=== PATIENT | female | born 1985 | race Caucasian/White ===

== ENCOUNTER 2018-01-17 05:00 | Inpatient (IN) | payer BC ==
[~2018-01-17] VITALS: Ht 162.6 cm; Wt 59.0 kg
[~2018-01-17 05:00] MED LIST: BENADRYL25 MG PO; CHROMAGEN,1 CAPSULE PO; ENDOCET 5-3251 EACH PO; IBUPROFEN800 MG PO; PRENATAL TABLE1 EACH PO; ZANTAC75 M1 PO
[2018-01-17 05:26] VITALS: BP 117/83
[2018-01-17 05:45] LABS: HEMATOCRIT 36.3 % (36.0-46.0); HEMOGLOBIN 12.1 G/DL (11.9-15.5); MCH 32.7 PG (29.0-34.0); MCHC 33.3 G/DL (30.0-36.0); MCV 98.1 FL (83-99); PLATELET COUNT 229 K/uL (156-360); RBC DIS.WIDTH-CV 13.7 % (11.8-14.6); RBC DIS.WIDTH-SD 48.4 % (39-53); WHITE BLOOD COUNT 12.4 K/uL (4.1-10.2)
[2018-01-17 06:23] LABS: BENZODIAZEPINES, URINE SCREEN Negative (200 ng/mL)
[2018-01-17 10:43] VITALS: BP 114/69
[2018-01-17 11:44] VITALS: BP 132/85
[2018-01-17 13:44] VITALS: BP 109/70
[2018-01-17 15:45] VITALS: BP 118/80
[2018-01-17 17:46] VITALS: BP 106/68
[2018-01-18 06:34] LABS: BASOPHIL (%) 0.3 % (0-1); EOSINOPHIL (%) 0.5 % (0-5); EOSINOPHIL COUNT 0.1 K/uL (0-0.3); HEMATOCRIT 28.3 % (36.0-46.0); IMMATURE GRANULOCYTE (%) 1.2 % (0.0-0.7); LYMPHOCYTE (%) 15.3 % (15-42); MCH 32.5 PG (29.0-34.0); MCHC 32.5 G/DL (30.0-36.0); MONOCYTE (%) 5.8 % (3-12); MONOCYTE COUNT 0.8 K/uL (0-0.8); NEUTROPHIL (%) 76.9 % (45-76); NEUTROPHIL COUNT 9.9 K/uL (1.8-6.4); PLATELET COUNT 181 K/uL (156-360); RBC DIS.WIDTH-CV 13.8 % (11.8-14.6); RBC DIS.WIDTH-SD 49.4 % (39-53); WHITE BLOOD COUNT 12.9 K/uL (4.1-10.2)
[2018-01-18 06:41] LABS: HEMOGLOBIN 9.2 G/DL (11.9-15.5); RED BLOOD COUNT 2.83 M/uL (3.80-5.20)
[2018-01-19 07:15] VITALS: BP 117/74
[2018-01-19] MEDS ORDERED: CHROMAGEN,1 CAPSULE PO (09:53)
[2018-01-19] MEDS ORDERED: IBUPROFEN800 MG PO (09:53)
[2018-01-19] MEDS ORDERED: HYDROCODON-ACE1 EA11 PO (09:53)
== END 2018-01-19 12:10 | disposition home or self-care (01) | DRG 765 ==
LOC: 2WEST 05:00 → 2SOUTH 13:30 → 2WEST 14:40
PROVIDERS: Obstetrics & Gynecology; Obstetrics & Gynecology Obstetrics
PROC: 10D00Z1 Extraction of Products of Conception, Low, Open Approach (ICD-10-PCS; principal; 2018-01-17)
DX: O34.211 Maternal care for low transverse scar from previous cesarean delivery (principal); Z3A.39 39 weeks gestation of pregnancy; Z37.0 Single live birth; O99.02 Anemia complicating childbirth; D62 Acute posthemorrhagic anemia; O69.81X0 Labor and delivery complicated by cord around neck, without compression, not applicable or unspecified
CPT/HCPCS: 80306 90; 85025; 85027; 86850; 86900; 86901; J0690; J1200; J1885; J2274; J2405; J2590; J2765; J7120; S0020